=== PATIENT | male | born 1990 | race Caucasian/White ===

== ENCOUNTER 2024-10-02 05:10 | Observation (INO) | payer OTHER ==
[2024-10-02 05:41] LABS: Absolute Lymphocytes (CBC) 3.3 K/uL (0.7-4.9); Hematocrit 46.4 % (39.6-49.0); Hemoglobin 16.4 g/dL (13.6-17.9); MCH 29.8 pg (27.0-35.0); MCHC 35.4 g/dL (32.0-36.0); MCV 84.1 fL (80-100); MPV 9.4 fL (7.6-11.3); Nucleated RBC Absolute Count 0.1 (0-0); Nucleated Red Blood Cells % 0.7 % (0-0); RBC Red Blood Cell Count 5.51 M/uL (4.33-5.43); White Blood Count 9.40 thou/uL (4.3-10.9)
[2024-10-02 06:00] LABS: ALT/SGPT 97.0 U/L (16-61); AST/SGOT 27.0 U/L (15-37); Albumin 4.1 g/dL (3.4-5.0); Albumin/Globulin Ratio 1.3 (1.1-1.8); Alkaline Phosphatase 64.0 U/L (45-117); Anion Gap 11.0 mEq/L (5.0-15.0); BUN Blood Urea Nitrogen 11.0 mg/dL (7-18); Globulin 3.2 g/dL (2.3-3.5); Glucose Level 106.0 mg/dL (74-106); Potassium 4.0 mEq/L (3.5-5.1)
[2024-10-02 06:21] LABS: Sqamous Epithelial None Seen /HPF (None Seen); Urine Culture Reflex Order NOT NEEDED; Urine Microscopic Reflex YN ORDER UMIC; Urine Yeast (Budding) Trace /HPF (None Seen)
--- NOTE | 2024-10-02 06:45 | RAD REPORT ---
EXAMINATION: Abdomen Pelvis W Contrast CLINICAL INDICATION: Male, 34 years old.ABD PAIN TECHNIQUE: CT abdomen and pelvis was performed, after the administration of IV contrast, [facility]. Axial, sagittal and coronal reconstructions were obtained. One or more of the following dose reduction techniques were used: Automated exposure control, adjustment of the mA and/o r kV according to patient size, and/or iterative reconstruction. Unless otherwise specified, incidental findings do not require dedicated imaging follow-up. [id number]. COMPARISON: No prior exams FINDINGS: LOWER CHEST: No acute process identified.No significant pericardial effusion. UPPER GI: No significant abnormality. LIVER: Hepatic steatosis, but otherwise unremarkable. GALLBLADDER/BILE DUCTS: No biliary ductal dilatation.? PANCREAS: No mass, ductal dilation, or latasha-pancreatic fluid. SPLEEN: Unremarkable. ADRENALS: No adrenal masses. KIDNEYS AND URETERS: No hydronephrosis.4 mm nonobstructing stone in the right kidney. ABDOMINAL AORTA AND OTHER VESSELS: Normal caliber aorta and IVC. PERITONEUM: No abnormal free fluid. No free air. LYMPH NODES: No pathologic lymphadenopathy. ABDOMINAL WALL: Small fat containing umbilical hernia. SMALL BOWEL/COLON: Small bowel has normal course and caliber. No colonic wall thickening or pericolon ic inflammatory changes.Dilated appendix with periappendiceal inflammatory changes in the retrocecal location. URINARY BLADDER: Underdistended but grossly unremarkable. REPRODUCTIVE ORGANS: No pathologic process. MUSCULOSKELETAL: No acute or suspicious osseous abnormality. ADDITIONAL FINDINGS: None. IMPRESSION: Acute nonperforated appendicitis. The findings were communicated to Dr. Guzman on 10/02/2024 6:43 AM.
--- NOTE | 2024-10-02 06:47 | ER ---
Nurse's Notes [facility] Name: Taran Malcolm Age: 34 yrs Sex: Male : 1990 Arrival Date: 10/02/2024 Time: 05:10 Bed 5 Private MD: Jonas Villegas Diagnosis: Unspecified acute appendicitis;elevated blood pressure Presentation: 10/02 05:24 Chief complaint: Patient states: Pt c/o RLQ pain....worse with movement. Denies br2 n/v/d/f....began yesterday at 0330. Coronavirus screen: Client denies travel out of the [place] in the last 14 days. Ebola Screen: Patient denies exposure to infectious person. Initial Sepsis Screen: Does the patient meet any 2 criteria? No. Patient's initial sepsis screen is negative. Does the patient have a suspected source of infection? No. Patient's initial sepsis screen is negative. Risk Assessment: Do you want to hurt yourself or someone else? Patient reports no desire to harm self or others. Onset of symptoms was October 01, 2024 at 03:30. 05:24 Method Of Arrival: Ambulatory br2 05:24 Acuity: JOHN 3 br2 Triage Assessment: 05:19 General: Appears uncomfortable, Behavior is calm, cooperative. Pain: Complains of pain al5 in right upper quadrant Pain at worst was 10 out of 10 on a pain scale. Quality of pain is described as throbbing. Neuro: Level of Consciousness is awake, alert, obeys commands, Oriented to person, place, time, situation. Cardiovascular: Capillary refill < 3 seconds Patient's skin is warm and dry. Respiratory: Airway is patent Respiratory effort is even, unlabored, Respiratory pattern is regular, symmetrical. GI: Abdomen is round non-distended, obese, Reports upper abdominal pain, nausea. : No signs and/or symptoms were reported regarding the genitourinary system. Musculoskeletal: Circulation, motion, and sensation intact. Range of motion: intact in all extremities. Historical: - Allergies: 05:28 No Known Allergies; br2 - PMHx: 05:28 None; br2 - PSHx: 05:28 None; br2 - Immunization history:: Adult Immunizations up to date. - Infectious Disease History:: Denies. - Social history:: Smoking status: Reported history of juuling and/or vaping. Patient uses alcohol, occasionally. Patient/guardian denies using street drugs. Screenin:34 [facility] ED Fall Risk Assessment (Adult) History of falling in the last 3 months, al5 including since admission No falls in past 3 months (0 pts) Confusion or Disorientation No (0 pts) Intoxicated or Sedated No (0 pts) Impaired Gait No (0 pts) Mobility Assist Device Used No (0 pt) Altered Elimination No (0 pt) Score/Fall Risk Level 0 - 2 = Low Risk Oriented to surroundings, Maintained a safe environment, Hourly rounding (assess needs \T\ fall precautionary measures) done. Abuse screen: Denies threats or abuse. Denies injuries from another. Nutritional screening: No deficits noted. Tuberculosis screening: No symptoms or risk factors identified. Assessment: 05:20 Reassessment: SEE TRIAGE ASSESSMENT. al5 06:30 Reassessment: Patient and/or family updated on plan of care and expected duration. Pain ha1 level reassessed. Patient is alert, oriented x 3, equal unlabored respirations, skin warm/dry/pink. 07:17 General: Appears in no apparent distress. uncomfortable, Behavior is calm, cooperative, jl7 appropriate for age. Pain: Complains of pain in right lower quadrant Pain currently is 3 out of 10 on a pain scale. at worst was 8 out of 10 on a pain scale. Neuro: Veliz Agitation-Sedation Scale (RASS): 0 - Alert and Calm Level of Consciousness is awake, alert, obeys commands, Oriented to person, place, time, situation. Cardiovascular: Patient's skin is warm and dry. Respiratory: Airway is patent Respiratory effort is even, unlabored, Respiratory pattern is regular, symmetrical. Derm: Skin is pink, warm \T\ dry. 07:21 Reassessment: Awaiting surgeon consult. jl7 08:00 Reassessment: Patient appears in no apparent distress at this time. No changes from jl7 previously documented assessment. Patient and/or family updated on plan of care and expected duration. Pain level reassessed. Patient is alert, oriented x 3, equal unlabored respirations, skin warm/dry/pink. Vital Signs: 05:24 BP 157 / 99; Pulse 80; Resp 18; Temp 97.1; Pulse Ox 99% on R/A; Weight 154.22 kg; br2 Height 6 ft. 4 in. ; Pain 5/10; 06:54 BP 127 / 68; Pulse 64; Resp 18 S; Pulse Ox 99% on R/A; ha1 07:17 BP 139 / 76; Pulse 68; Resp 15; Pulse Ox 97% ; Pain 3/10; jl7 05:24 Body Mass Index 41.39 (154.22 kg, 193.04 cm) br2 05:24 Pain Scale: Adult br2 07:17 Pain Scale: Adult jl7 ED Course: 05:12 Patient arrived in ED. jj6 05:12 Jonas Villegas MD is Private Physician. jj6 05:16 Gurpreet Guzman DO is Attending Physician. ms3 05:19 Katiuska Carver, ABNER is Primary Nurse. al5 05:28 Triage completed. br2 05:28 Arm band placed on right wrist. br2 05:33 No provider procedures requiring assistance completed. Inserted saline lock: 20 gauge al5 in right forearm, using aseptic technique. ,using aseptic technique. done by ABNER Collins Blood collected. Flushed with 10 mL NS. 05:34 Patient has correct armband on for positive identification. Bed in low position. Call al5 light in reach. Side rails up X 1. Provided Education on: plan of care. 06:16 CT Abd/Pelvis - IV Contrast Only In Process Unspecified. EDMS 06:47 Cassius Hodgson MD is Hospitalizing Provider. ms3 07:10 Primary Nurse role handed off by Katiuska Carver RN jl7 07:10 Jonathon Giles RN is Primary Nurse. jl7 07:17 IV is patent, Flushed right forearm with 5 ml normal saline Patient admitted, IV jl7 remains in place. intact, No redness/swelling at site. Administered Medications: 07:22 Drug: Piperacillin-Tazobactam IVPB 3.375 grams IVPB once over 60 mins; (mix in NS 100 jl7 mL) Route: IVPB; Infused Over: 60 mins; Site: right forearm; 08:22 Follow up: Response: No adverse reaction; IV Status: Completed infusion jl7 Medication: 05:34 VIS not applicable for this client. al5 Outcome: 06:47 Decision to Hospitalize by Provider. ms3 08:00 Admitted to Med/surg accompanied by tech, via wheelchair, room 224, with chart, jl7 08:00 Condition: stable 08:00 Discharge instructions given to patient, Instructed on the need for admit, Demonstrated understanding of instructions, 09:06 Patient left the ED. jl7 Signatures: Dispatcher [employer] EDMS Jonathon Giles, RN RN jl7 Gurpreet Guzman DO DO ms3 Luann Hussein jj6 Anni Petit, RN RN ha1 Katiuska Carver RN RN al5 Yuliya Chavez RN RN br2
--- NOTE | 2024-10-02 06:47 | EDPHYS ---
Physician Documentation [facility] Name: Taran Malcolm Age: 34 yrs Sex: Male : 1990 Arrival Date: 10/02/2024 Time: 05:10 Bed 5 Private MD: Jonas Villegas ED Physician Gurpreet Guzman HPI: 10/02 06:48 This 34 yrs old Male presents to ER via Ambulatory with complaints of Abdominal Pain. ms3 06:48 34-year-old male with no past medical history presents to the emergency department with ms3 right lower quadrant abdominal pain that began at 10 AM yesterday. Patient states with movement his pain is a 10/10 and while lying still his pain is a 4/10. Patient denies nausea, vomiting, diarrhea, fevers. . Historical: - Allergies: 05:28 No Known Allergies; br2 - PMHx: 05:28 None; br2 - PSHx: 05:28 None; br2 - Immunization history:: Adult Immunizations up to date. - Infectious Disease History:: Denies. - Social history:: Smoking status: Reported history of juuling and/or vaping. Patient uses alcohol, occasionally. Patient/guardian denies using street drugs. ROS: 06:48 Constitutional: Negative for fever, and chills. Cardiovascular: Negative for chest ms3 pain, and palpitations. Respiratory: Negative for shortness of breath, cough, wheezing, and pleuritic chest pain, 06:48 MS/Extremity: Negative for injury and deformity, Skin: Negative for injury, rash, and discoloration, 06:48 Abdomen/GI: Positive for abdominal pain, Exam: 06:48 Constitutional: This is a well developed, well nourished patient who is awake, alert, ms3 and in no acute distress. Cardiovascular: Regular rate and rhythm with a normal S1 and S2. No gallops, murmurs, or rubs. Normal PMI, no JVD. No pulse deficits. Respiratory: Lungs have equal breath sounds bilaterally, clear to auscultation and percussion. No rales, rhonchi or wheezes noted. No increased work of breathing, no retractions or nasal flaring. 06:48 Abdomen/GI: Inspection: abdomen appears normal, Bowel sounds: normal, Palpation: moderate abdominal tenderness, in the right lower quadrant, rebound tenderness, is appreciated in the right lower quadrant, Vital Signs: 05:24 BP 157 / 99; Pulse 80; Resp 18; Temp 97.1; Pulse Ox 99% on R/A; Weight 154.22 kg; br2 Height 6 ft. 4 in. ; Pain 5/10; 06:54 BP 127 / 68; Pulse 64; Resp 18 S; Pulse Ox 99% on R/A; ha1 07:17 BP 139 / 76; Pulse 68; Resp 15; Pulse Ox 97% ; Pain 3/10; jl7 05:24 Body Mass Index 41.39 (154.22 kg, 193.04 cm) br2 05:24 Pain Scale: Adult br2 07:17 Pain Scale: Adult jl7 MDM: 05:20 Medical Screening Exam initiated ms3 06:48 Differential diagnosis: appendicitis, bowel obstruction, diverticulitis, non-specific ms3 abd pain. Data reviewed: vital signs, nurses notes, lab test result(s), radiologic studies, and as a result, I will admit patient. Consideration of Admission/Observation Patient was admitted/placed on observation. Management of patient was discussed with the following: Hospitalist: Dr Hodgson. Heel Lining Paster: Dr Dave. I considered the following discharge prescriptions or medication management in the emergency department Medications were administered in the Emergency Department. See MAR. Discussion of test interpretation with radiology: I had a discussion with radiology regarding a test interpretation. CT abdomen/ pelvis discussed with Dr Zabala- non-perforated appendicitis. Counseling: I had a detailed discussion with the patient and/or guardian regarding the historical points, exam findings, and any diagnostic results supporting the discharge/admit diagnosis, lab results, radiology results, the need for further work-up and treatment in the hospital. ED course: Discussed with patient CT shows nonperforated appendicitis. Discussed admission to the hospital with patient and he understands and agrees with plan.. 10/02 05:21 Order name: CBC with Diff; Complete Time: 06:22 ms3 10/02 05:21 Order name: CMP; Complete Time: 06:22 ms3 10/02 05:21 Order name: UA Rfx Ld Cult if indicated; Complete Time: 06:22 ms3 10/02 07:03 Order name: Basic Metabolic Panel EDMS 10/02 07:03 Order name: Basic Metabolic Panel EDMS 10/02 07:03 Order name: CBC with Automated Diff EDMS 10/02 07:03 Order name: CBC with Automated Diff EDMS 10/02 05:21 Order name: CT Abd/Pelvis - IV Contrast Only; Complete Time: 06:52 ms3 10/02 05:21 Order name: IV Saline Lock; Complete Time: 05:33 ms3 10/02 05:21 Order name: Labs collected and sent; Complete Time: 05:33 ms3 Administered Medications: 07:22 Drug: Piperacillin-Tazobactam IVPB 3.375 grams IVPB once over 60 mins; (mix in NS 100 jl7 mL) Route: IVPB; Infused Over: 60 mins; Site: right forearm; 08:22 Follow up: Response: No adverse reaction; IV Status: Completed infusion jl7 Disposition Summary: 10/02/24 06:47 Hospitalization Ordered Notes: Hospitalization Status: Observation ms3 Provider: Cassius Hodgson ms3 Location: Telemetry/MedSurg (observation) ms3 Condition: Stable ms3 Problem: new ms3 Symptoms: are unchanged ms3 Bed/Room Type: Standard ms3 Room Assignment: 224(10/02/24 08:17) eb Diagnosis - Unspecified acute appendicitis ms3 - elevated blood pressure ms3 Forms: - Medication Reconciliation Form ms3 - SBAR form ms3 - Leadership Thank You Letter ms3 Signatures: Dispatcher [employer] EDMS Jose Miguel Tristan FNP-C [employer]OOF [employer]-Cla1 Jonathon Giles RN RN jl7 Kristal Lora Marcus, DO DO ms3 Yuliya Chavez, RN RN br2 Corrections: (The following items were deleted from the chart) 05:21 05:21 CBC+H.LAB.BRZ ordered. EDMS EDMS 05:21 05:21 COMPREHENSIVE METABOLIC PANEL+C.LAB.BRZ ordered. EDMS EDMS 05:22 05:22 Abdomen Pelvis W Con+CT.RAD.BRZ ordered. EDMS EDMS 05:22 05:22 UA Rfx Ld Cult if indicated+U.LAB.BRZ ordered. EDMS EDMS 08: 06:47 ms3 eb
[2024-10-02] MEDS ORDERED: ONDANSETRON 4 MG/2 ML VIAL IV PRN (06:59)
[2024-10-02] MEDS ORDERED: MORPHINE 2 MG/ML SYR IV PRN (06:59)
[2024-10-02] MEDS: NA CHLORIDE 0.9% 1,000 ML IV SCH (07:00)
[2024-10-02] MEDS ORDERED: PIPERACIL/TAZO 3.375 GM VIAL IV ONE (07:05)
[2024-10-02] MEDS ORDERED: NA CHLORIDE 0.9% 100 ML ONE (07:05)
--- NOTE | 2024-10-02 07:06 | P.HP ---
Certification for Inpatient Patient admitted to: Observation With expected LOS: <2 Midnights Patient will require the following post-hospital care: None Practitioner: I am a practitioner with admitting privileges, knowledge of patient current condition, hospital course, and medical plan of care. Services: Services provided to patient in accordance with Admission requirements found in Title 42 Section 412.3 of the Code of Federal Regulations Patient History Date of Service: 10/02/24 Reason for admission: Acute appendicitis History of Present Illness: Patient presents with right lower quadrant abdominal pain for around 24 hours now. Denies nausea vomiting or diarrhea, pain worse with movement, palpation, deep breaths. He is on Wegovy for weight loss with his last dose being 09/29, his last meal was around 2200 last night a salad, last had water around 0330 this morning. Labs were remarkable for a mildly elevated T. bili of 1.3 and an ALT of 97 CT of the abdomen pelvis was performed which showed acute uncomplicated appendicitis. CT does also show fatty liver. Patient be admitted for further management appendicitis with plan for surgical intervention. - Past Medical/Surgical History -: Genital herpes -: Takes Wegovy for weight loss -: [place] teeth Psychosocial/ Personal History: Lives at home with his family - Social History Alcohol use: No CD- Drugs: No Caffeine use: Yes Place of Residence: Home Review of Systems 10-point ROS is otherwise unremarkable Gastrointestinal: Abdominal Pain Physical Examination - Physical Exam General: Alert, In no apparent distress, Oriented x3 HEENT: Atraumatic, PERRLA Neck: Supple, 2+ carotid pulse no bruit, No LAD Respiratory: Clear to auscultation bilaterally, Normal air movement Cardiovascular: Regular rate/rhythm, Normal S1 S2 Gastrointestinal: Normal bowel sounds, Tenderness Musculoskeletal: No contractures Integumentary: No rashes Neurological: Normal speech, Normal affect - Studies Laboratory Data (last 24 hrs) 10/02/24 10/02/24 05:30 05:30 WBC 9.40 Hgb 16.4 Hct 46.4 Plt Count 241 Sodium 139 Potassium 4.0 BUN 11 Creatinine 1.02 Glucose 106 Total Bilirubin 1.3 H AST 27 ALT 97 H Alkaline Phosphatase 64 Assessment and Plan - Plan Assessment: Acute appendicitis Hepatic steatosis Plan: Acute appendicitis N.p.o., surgical consultation, IV antibiotics As needed pain medications and antiemetics Of note patient is on Wegovy with his last dyspnea on 09/29 Hepatic steatosis Patient already working on weight loss, taking Wegovy/dieting Recommend continuation of this after recovery DVT PPX: SCD Code status: Full code Discharge Plan: Home Plan to discharge in: 24 Hours - Advance Directives Does patient have a Living Will: No Does patient have a Durable POA for Healthcare: No - Code Status/Comfort Care Code Status Assessed: Yes (Full code) Critical Care: No Time Spent Managing Pts Care (In Minutes): 64
[2024-10-02 10:28] VITALS: BMI 41.3
[2024-10-02] MEDS: Ringers Lactate 1,000 ML IV ONE (13:00)
[2024-10-02] MEDS ORDERED: ROCURONIUM 50 MG/5 ML VIAL IV ONE (13:25)
[2024-10-02] MEDS ORDERED: FENTANYL CITR 100 MCG/2 ML ONE (13:25)
[2024-10-02] MEDS ORDERED: MIDAZOLAM HCL 2 MG/2 ML INJ ONE (13:25)
[2024-10-02] MEDS ORDERED: SUCCINYLCHOLINE 200 MG/10 ML 200 MG/10 ML SYR IV ONE (13:25)
[2024-10-02] MEDS: NA CIT/CITRIC AC 30 ML ORAL UDC ONE (13:30)
[2024-10-02] MEDS: FAMOTIDINE 20 MG/2 ML VIAL IV ONE (13:30)
[2024-10-02] MEDS: METOCLOPRAMIDE 10 MG/2mL INJ ONE (13:30)
[2024-10-02] MEDS ORDERED: GLYCOPYRROLATE 0.2 MG/ML SYR ONE (13:31)
[2024-10-02] MEDS ORDERED: ONDANSETRON 4 MG/2 ML VIAL ONE (13:31)
[2024-10-02] MEDS ORDERED: LIDOCAINE 1% MPF 5 ML VIAL ONE (13:31)
[2024-10-02] MEDS ORDERED: NEOSTIGMINE 1 MG/ML -10 ML VIAL ONE (13:31)
[2024-10-02] MEDS ORDERED: KETOROLAC 30 MG/ML INJ ONE (13:31)
[2024-10-02] MEDS: PIPER TAZO 3.375 GM in NA CHLORIDE 0.9% 100 ML IV SCH (15:00)
[2024-10-02 15:18] VITALS: O2SAT 97
--- NOTE | 2024-10-02 15:32 | P.BOP ---
Preoperative diagnosis: acute appendicitis Postoperative diagnosis: same Primary procedure: Laparoscopic appendectomy Estimated blood loss: <10cc Specimen: yimi Anesthesia: General Complications: None Transferred to: Recovery Room Condition: Good
--- NOTE | 2024-10-02 19:37 | CON ---
Date of Consultation: 10/02/2024 Diagnosis: Acute appendicitis. History Of Present Illness: This is a case of a male, who comes to us with abdominal pain for the la st 24 hours associated with nausea. The patient has been having some issues on and off with his phillip rointestinal tract. He is on Wegovy. Last dose was 09/19 with mix of weight loss and diarrhea and so metimes constipation. He denies any dysuria, hematuria, hematochezia, or melena. Denies any recent travel out of the country. Denies any family member sick at home. Review of Systems: Ten points otherwise unremarkable. Past Medical History: Morbid obesity. Medications: Wegovy. Social History: He does not smoke. He does not drink alcohol. Family History: Noncontributory. Allergies: NONE. Physical Examination: Vital Signs: Reviewed. General: The patient is awake, alert. HEENT: Pupils are equal and reactive. Anicteric. Neck: Supple. Chest: Clear. Heart: S1, S2. Abdomen: Right lower quadrant tenderness with guarding. Rovsing sign positive. Rectal: Deferred. Genitalia: Deferred. Extremities: Good capillary refill. Laboratory Data: Blood work shows WBC count of 9.4 with hemoglobin of 16.4, platelets of 241, and po tassium 4.0. CAT scan of abdomen and pelvis shows acute appendicitis. Assessment: A 34-year-old patient with acute appendicitis. The benefits, alternatives, and risks of laparoscopic, possible open appendectomy fully explained, which include, but not limited to infectio n, bleeding, damage to adjacent structures, anesthesia complication, abscess, RI, even . He als o understands this may not relieve symptoms. He might need more than one surgical intervention. He understood. He signed a consent. AC/TOBY Voice ID: [id number] Report ID: [id number]
[2024-10-02] MEDS: HYDROCODONE/APAP 5/325 MG TAB PO PRN (21:16)
[2024-10-02] MEDS: VALACYCLOVIR 500 MG TAB PO SCH (21:16)
--- NOTE | 2024-10-03 02:28 | OP ---
Date of Procedure: 10/02/2024 Surgeon: Bebo Dave MD Diagnosis: Acute appendicitis, acute abdominal pain. Postoperative Diagnosis: Acute appendicitis, acute abdominal pain. Procedure: Laparoscopic appendectomy. Ebl: Less than 10 cc. Specimen: Appendix. Anesthesia: General plus local. Indications: This is the case of a 34-year-old patient comes to us with above diagnosis. Fully expl ained the benefits, alternatives, and risks laparoscopic, possible open appendectomy, which included, but not limited to, infection, bleeding, damage to adjacent structures, anesthesia complication, IN, and even. He also understands this may not relieve his symptoms, he might need more than one surgic al intervention. He understood, signed a consent. Description Of Procedure: The patient was brought to the operating room, placed in supine position. Anesthesia was done without complication. Abdominal area was prepped and draped in sterile fashion. Local anesthesia was applied followed by sharp incision of the skin in the infraumbilical region. Incision was carried down to fascia, which was opened under direct vision. Peritoneum was encountere d, opened under direct vision. Vicryl #1 placed inside the fascia. Jeanette trocar was carefully intr oduced. Pneumoperitoneum was obtained. I placed 2 more trocars, 5 mm each one of them in the suprap ubic and left lower quadrant under direct visualization. Placed the patient in Trendelenburg positio n, right side up. We noticed an inflamed appendix, inflamed also mesoappendix partially retrocecal, so we used a LigaSure to basically mobilize the white lines of Toldt enough to release the appendix. The base of the appendix seems to be spared from the inflammation. The mesoappendix was transected with a LigaSure too. Once we have the base of the appendix clear, we proceeded to transect that with a nonvascular Endo-HUYEN. No bowel leak. No bleeding. Appendix removed from abdominal cavity using EndoCatch through the umbilical incision. Profuse irrigation of the area was done until clear. No b owel leak. No bleeding. At that moment, I proceeded to remove the trocars under direct vision, defl ated pneumoperitoneum, closed the fascia with #1 Vicryl, irrigated, subcutaneous tissue closed with 3 -0 chromic and the skin with maria luisa. Sponge counts, instrument counts were correct. Patient tolera adam the procedure well. Patient was sent to recovery in stable condition. HM/MODL Voice ID: [id number] Report ID: [id number]
[2024-10-03 05:16] LABS: Absolute Lymphocytes (CBC) 1.3 K/uL (0.7-4.9); Hematocrit 43.1 % (39.6-49.0); Hemoglobin 15.5 g/dL (13.6-17.9); MCH 30.4 pg (27.0-35.0); MCHC 35.8 g/dL (32.0-36.0); MCV 84.8 fL (80-100); MPV 9.1 fL (7.6-11.3); Nucleated RBC Absolute Count 0.0 (0-0); Nucleated Red Blood Cells % 0.1 % (0-0); RBC Red Blood Cell Count 5.09 M/uL (4.33-5.43); White Blood Count 13.80 thou/uL (4.3-10.9)
[2024-10-03 05:24] LABS: Anion Gap 11.0 mEq/L (5.0-15.0); BUN Blood Urea Nitrogen 10.0 mg/dL (7-18); Glucose Level 141.0 mg/dL (74-106); Potassium 4.0 mEq/L (3.5-5.1)
[2024-10-03 09:02] LABS: Blood Morphology Comment NOT SEEN (NOT SEEN); White Blood Cell Scan OK (OK)
--- NOTE | 2024-10-03 10:07 | P.DS ---
Admission Date: 10/02/24 Discharge Date: 10/03/24 Disposition: ROUTINE DISCHARGE Discharge Condition: GOOD Reason for Admission: Acute appendicitis Brief History of Present Illness: Patient presents with right lower quadrant abdominal pain for around 24 hours now. Denies nausea vomiting or diarrhea, pain worse with movement, palpation, deep breaths. He is on Wegovy for weight loss with his last dose being 09/29, his last meal was around 2200 last night a salad, last had water around 0330 this morning. Labs were remarkable for a mildly elevated T. bili of 1.3 and an ALT of 97 CT of the abdomen pelvis was performed which showed acute uncomplicated appendicitis. CT does also show fatty liver. Patient be admitted for further management appendicitis with plan for surgical intervention. Hospital Course: Assessment: Acute appendicitis Hepatic steatosis Patient was admitted to hospital for uncomplicated acute meningitis. He underwent laparoscopic appendectomy on 10/02 and is doing well postoperatively. He is stable for discharge and outpatient follow-up with general surgery on 10/10 in the office. Prescription for antibiotic, pain medicine sent to the pharmacy Continue other home medications previously prescribed Vital Signs/Physical Exam: Temp Pulse Resp BP Pulse Ox 97.4 F 72 16 115/59 L 95 10/03/24 08:00 10/03/24 08:00 10/03/24 08:00 10/03/24 08:00 10/03/24 08:00 General: Alert, In no apparent distress, Oriented x3 HEENT: Atraumatic Neck: Supple, JVD not distended Respiratory: Clear to auscultation bilaterally, Normal air movement Cardiovascular: Regular rate/rhythm, Normal S1 S2 Gastrointestinal: Normal bowel sounds, No tenderness Musculoskeletal: No tenderness Integumentary: No rashes Neurological: Normal speech, Normal affect Laboratory Data at Discharge: WBC 13.80 thou/uL (4.3-10.9) H 10/03/24 04:51 Hgb 15.5 g/dL (13.6-17.9) 10/03/24 04:51 Hct 43.1 % (39.6-49.0) 10/03/24 04:51 Plt Count 244 thou/uL (152-406) 10/03/24 04:51 Sodium 138 mEq/L (136-145) 10/03/24 04:51 Potassium 4.0 mEq/L (3.5-5.1) 10/03/24 04:51 BUN 10 mg/dL (7-18) 10/03/24 04:51 Creatinine 1.13 mg/dL (0.70-1.30) 10/03/24 04:51 Glucose 141 mg/dL (74-106) H 10/03/24 04:51 Total Bilirubin 1.3 mg/dL (0.2-1.0) H 10/02/24 05:30 AST 27 U/L (15-37) 10/02/24 05:30 ALT 97 U/L (16-61) H 10/02/24 05:30 Alkaline Phosphatase 64 U/L (45-117) 10/02/24 05:30 Home Medications: Cholecalciferol (Vitamin D3) [Decara] 50,000 units PO SEECOM 10/02/24 Semaglutide [Wegovy] 0.25 mg SQ SEECOM 10/02/24 Valacyclovir HCl [Valacyclovir] 500 mg PO DAILY 10/02/24 Varenicline Tartrate 1 mg PO BID 10/02/24 Amox/Clavulanate [Augmentin 875-125 Tab] 875 mg PO BID 5 Days #10 tab 10/03/24 Hydrocodone 5/APAP 325 [[place] 5/325*] 1 tab PO Q8H PRN #15 tab 10/03/24 New Medications: Amox/Clavulanate [Augmentin 875-125 Tab] 875 mg PO BID 5 Days #10 tab Hydrocodone 5/APAP 325 [[place] 5/325*] 1 tab PO Q8H PRN #15 tab PRN Reason: Pain Scale 5-7 (Moderate) Physician Discharge Instructions: Patient was admitted to hospital for uncomplicated acute appendicitis. He u nderwent laparoscopic appendectomy on 10/02 and is doing well postoperatively. He is stable for discharge and outpatient follow-up with general surgery on 10/10 in the office. Prescription for antibiotic, pain medicine sent to the pharmacy Continue other home medications previously prescribed Diet: [place] Activity: No lifting more than 10 lbs Followup: Bebo Dave MD [ACTIVE - CAN ADMIT] - 10/10/24 NONE,NONE [Primary Care Provider] - Time spent managing pt's care (in minutes): 37
[2024-10-03 13:23] VITALS: BP 128/64; TEMP 98.2
[2024-10-03] MEDS ORDERED: VALACYCLOVIR 500 MG TAB PO SCH (21:00)
== END 2024-10-03 14:42 | disposition home or self-care (01) ==
LOC: ER 05:10 → ERHOLD 06:59 → 2ND 08:24
PROVIDERS: ADMIT Hospitalist; ATTEND Hospitalist
PROC: 0DTJ4ZZ Resection of Appendix, Percutaneous Endoscopic Approach (ICD-10-PCS; principal; 2024-10-02 13:00)
DX: K35.80 Unspecified acute appendicitis (principal); R10.31 Right lower quadrant pain; K76.0 Fatty (change of) liver, not elsewhere classified
CPT/HCPCS: 96365; 85025 ×2; 81001; 80048; 36415; 88304; 80053; 74177; 94010 ×3; 99285; 44970; Q9967; J2704; J2710; J2765; J2003; J2543 ×4; J2250; J3010; J1100; J2405; J0330; J7120; J7030 ×3; G0378